=== PATIENT | female | born 1970 | race Caucasian/White ===

== ENCOUNTER 2022-09-02 13:12 | Emergency (ER) | payer SELFPAY | END 2022-09-02 15:42 | disposition left against medical advice (07) | LOC: ER 13:13 | DX: Z04.3 Encounter for examination and observation following other accident (principal); Z53.21 Procedure and treatment not carried out due to patient leaving prior to being seen by health care provider; W19.XXXA Unspecified fall, initial encounter; Y93.89 Activity, other specified; Y92.89 Other specified places as the place of occurrence of the external cause; Y99.8 Other external cause status ==

== ENCOUNTER → 2024-07-04 | Outpatient (CLI) | payer BC | END | disposition home or self-care (01) | LOC: MRI02 08:25 | PROVIDERS: ATTEND Orthopaedic Surgery | DX: M75.101 Unspecified rotator cuff tear or rupture of right shoulder, not specified as traumatic (principal); M25.511 Pain in right shoulder; M75.01 Adhesive capsulitis of right shoulder; M89.311 Hypertrophy of bone, right shoulder; M75.51 Bursitis of right shoulder; R60.0 Localized edema | CPT/HCPCS: 73221 ==